=== PATIENT | male | born 1975 | race American Indian/Alaskan Native ===

== ENCOUNTER 2020-08-30 23:23 | Inpatient (IN) | payer OTHER ==
[2020-08-31 00:37] LABS: Mean Corpuscular HGB Conc 29 % (32-34); Platelet Count 285 K/mm3 (140-440); Red Blood Count 4.47 M/mm3 (3.65-5.03); Red Cell Distribution Width 19.5 % (13.2-15.2)
[2020-08-31 00:44] LABS: Bilirubin,Urine NEG (Negative); Blood,Urine NEG (Negative); Color,Urine Straw (Yellow); Protein,Urine <15 mg/dL mg/dL (Negative); Urobilinogen,Urine < 2.0 mg/dL (<2.0)
[2020-08-31 00:57] LABS: Alanine Aminotransferase 102 units/L (7-56); Albumin 3.7 g/dL (3.9-5); Blood Urea Nitrogen 12 mg/dL (9-20); Calcium 8.3 mg/dL (8.4-10.2); Hemolysis Index 7
[2020-08-31 00:59] LABS: Hematocrit 31.2 % (35.5-45.6); Hemoglobin 9.2 gm/dl (11.8-15.2); Mean Corpuscular Volume 70 fl (84-94)
[2020-08-31 01:00] LABS: BUN/Creatinine Ratio 17
--- NOTE | 2020-08-31 01:08 | Emergency Department Report ---
<PIA WOLFF III - Last Filed: 08/31/20 03:06> ED General Adult HPI - General Chief complaint: Abdominal Pain Stated complaint: ABD PAIN PUI?: No Time Seen by Provider: 08/31/20 00:08 - Related Data Allergies Allergy/AdvReac Type Severity Reaction Status Date / Time No Known Allergies Allergy Unverified 08/31/20 00:03 ED Course - Reevaluation(s) Reevaluation #1: I reviewed the findings and management of this patient in real-time and I have personally seen and examined this patient and participated in the decision making for this patient with the midlevel. Patient is a 45-year-old male [facility] emergency room with complaints of abdominal pain for 4 weeks and melena. Patient is also HIV positive and has been off his HIV medications. Patient also not taking his Bactrim. Patient had a guaiac positive Hemoccult done by the midlevel. Patient was found to have black stools. GI was consulted. Patient had a CT scan of the abdomen. Patient admitted to the hospitalist service. I examined the patient. Patient has generalized tenderness. Patient has normal S1-S2. Patient's lung sounds are clear to auscultation. I discussed all results with patient. I discussed plan of care with patient. Patient agrees with plan of care and admission. Patient to be admitted to the hospitalist service. 08/31/20 03:06 ED Medical Decision Making - Lab Data Result diagrams: 08/31/20 00:17 08/31/20 01:46 ED Disposition Clinical Impression: Melena, Noncompliance HIV (human immunodeficiency virus infection) Qualifiers: HIV symptom status: symptomatic Qualified Code(s): B20 - Human immunodeficiency virus [HIV] disease Anemia Qualifiers: Anemia type: unspecified type Qualified Code(s): D64.9 - Anemia, unspecified Pneumonia Qualifiers: Pneumonia type: due to unspecified organism Laterality: bilateral Lung location: unspecified part of lung Qualified Code(s): J18.9 - Pneumonia, unspecified organism GI bleed Qualifiers: GI bleed type/associated pathology: melena Qualified Code(s): K92.1 - Melena Disposition: DC-09 OP ADMIT IP TO THIS HOSP Is pt being admited?: Yes Does the pt Need Aspirin: No Condition: Critical <CHRISTOPH RIVAS - Last Filed: 08/31/20 03:27> ED General Adult HPI - General Source: patient, EMS Mode of arrival: Ambulatory Limitations: No Limitations - History of Present Illness Initial comments: Patient is a 45-year-old male presents emergency room complaints of generalized abdominal pain for a month. He states that he has also developed black stools over the last couple of weeks. He denies any fever, nausea, vomiting, diarrhea, hematochezia. He has a past medical history of AIDS and states that he has b een off his medication for 3 weeks. He is unsure of his HIV medication but states that he is also supposed to be on Bactrim and has not been on it for 3 weeks. He has an associated dry cough for 3 weeks. He states that he also has a pruritic rash all over his body. He denies any medication allergies. ED Review of Systems ROS: Stated complaint: ABD PAIN Other details as noted in HPI Comment: All other systems reviewed and negative ED Past Medical Hx - Past Medical History Previous Medical History?: No - Surgical History Past Surgical History?: No - Social History Smoking Status: Current Every Day Smoker Substance Use Type: None ED Physical Exam - General Limitations: No Limitations General appearance: alert, in no apparent distress - Head Head exam: Present: atraumatic, normocephalic - Eye Eye exam: Present: normal appearance - ENT ENT exam: Present: mucous membranes moist - Respiratory Respiratory exam: Present: normal lung sounds bilaterally. Absent: respiratory distress, wheezes, rales, rhonchi, stridor, chest wall tenderness, accessory muscle use, decreased breath sounds, prolonged expiratory - Cardiovascular Cardiovascular Exam: Present: regular rate, normal rhythm, normal heart sounds. Absent: systolic murmur, diastolic murmur, rubs, gallop - GI/Abdominal GI/Abdominal exam: Present: soft, normal bowel sounds. Absent: distended, tenderness, guarding, rebound, rigid - Rectal Rectal exam: Present: other (asset management analyst: jimi, plastics factory worker, melanotic stool, heme positive stool, no palpable or visualized external or internal hemorrhoids, normal rectal tone, no bright red blood per rectum) - Neurological Exam Neurological exam: Present: alert, oriented X3 - Psychiatric Psychiatric exam: Present: normal affect, normal mood - Skin Skin exam: Present: warm, dry, rash (hyperpigmentation and dry skin diffusely ) ED Course Vital Signs 08/30/20 08/31/20 08/31/20 23:51 02:06 02:16 Temperature 97.6 F Pulse Rate 92 H 89 Respiratory 18 11 L Rate Blood Pressure 139/86 133/90 O2 Sat by Pulse 98 93 96 Oximetry 08/31/20 08/31/20 08/31/20 02:30 02:46 03:00 Temperature Pulse Rate 106 H Respiratory 18 Rate Blood Pressure 160/103 160/103 O2 Sat by Pulse 92 96 95 Oximetry 08/31/20 03:09 Temperature Pulse Rate 86 Respiratory 17 Rate Blood Pressure O2 Sat by Pulse 97 Oximetry - Consultations Consultation #1: 08/31/20 01:52 Spoke with hospitalist nurse practitioner for Dr. Martínez, hospitalist regarding patient history, results, will accept and resume care of patient, will admit to hospitalist service 08/31/20 03:[address] Burdick , regarding pt history and results will consult on patient ED Medical Decision Making - Lab Data Result diagrams: 08/31/20 00:17 08/31/20 01:46 Lab Results 08/31/20 08/31/20 08/31/20 Range/Units 00:08 00:17 00:17 WBC 6.1 (4.5-11.0) K/mm3 RBC 4.47 (3.65-5.03) M/mm3 Hgb 9.2 L (11.8-15.2) gm/dl Hct 31.2 L (35.5-45.6) % MCV 70 L (84-94) fl MCH 21 L (28-32) pg MCHC 29 L (32-34) % RDW 19.5 H (13.2-15.2) % Plt Count 285 (140-440) K/mm3 Eos % (Auto) Buffing Wheel Inspector PT (12.2-14.9) Sec. INR (0.87-1.13) APTT (24.2-36.6) Sec. D-Dimer (0-234) ng/mlDDU Sodium 139 (137-145) mmol/L Potassium 3.5 L (3.6-5.0) mmol/L Chloride 104.0 (98-107) mmol/L Carbon Dioxide 25 (22-30) mmol/L Anion Gap 14 mmol/L BUN 12 (9-20) mg/dL Creatinine 0.7 L (0.8-1.3) mg/dL Estimated GFR > 60 ml/min BUN/Creatinine Ratio 17 % Glucose 88 (75-100) mg/dL Lactic Acid (0.7-2.0) mmol/L Calcium 8.3 L (8.4-10.2) mg/dL Total Bilirubin 0.20 (0.1-1.2) mg/dL AST 74 H (5-40) units/L ALT 102 H (7-56) units/L Alkaline Phosphatase 138 H (35-129) units/L Total Protein 7.2 (6.3-8.2) g/dL Albumin 3.7 L (3.9-5) g/dL Albumin/Globulin Ratio 1.1 % Lipase (13-60) units/L Urine Color Straw (Yellow) Urine Turbidity Clear (Clear) Urine pH 6.0 (5.0-7.0) Ur Specific [place] 1.008 (1.003-1.030) Urine Protein <15 mg/dl (Negative) mg/dL Urine Glucose (UA) Neg (Negative) mg/dL Urine Ketones Neg (Negative) mg/dL Urine Blood Neg (Negative) Urine Nitrite Neg (Negative) Ur Reducing Substances Not Reportable Urine Bilirubin Neg (Negative) Urine Ictotest Not Reportable Urine Urobilinogen < 2.0 (<2.0) mg/dL Ur Leukocyte Esterase Neg (Negative) Urine WBC (Auto) 1.0 (0.0-6.0) /HPF Urine RBC (Auto) 1.0 (0.0-6.0) /HPF U Epithel Cells (Auto) < 1.0 (0-13.0) /HPF 08/31/20 08/31/20 08/31/20 Range/Units 00:17 00:25 01:46 WBC (4.5-11.0) K/mm3 RBC (3.65-5.03) M/mm3 Hgb (11.8-15.2) gm/dl Hct (35.5-45.6) % MCV (84-94) fl MCH (28-32) pg MCHC (32-34) % RDW (13.2-15.2) % Plt Count (140-440) K/mm3 Eos % (Auto) PT 12.5 (12.2-14.9) Sec. INR 0.95 (0.87-1.13) APTT 31.2 (24.2-36.6) Sec. D-Dimer 219.47 (0-234) ng/mlDDU Sodium (137-145) mmol/L Potassium (3.6-5.0) mmol/L Chloride (98-107) mmol/L Carbon Dioxide (22-30) mmol/L Anion Gap mmol/L BUN (9-20) mg/dL Creatinine (0.8-1.3) mg/dL Estimated GFR ml/min BUN/Creatinine Ratio % Glucose (75-100) mg/dL Lactic Acid (0.7-2.0) mmol/L Calcium (8.4-10.2) mg/dL Total Bilirubin (0.1-1.2) mg/dL AST (5-40) units/L ALT (7-56) units/L Alkaline Phosphatase (35-129) units/L Total Protein (6.3-8.2) g/dL Albumin (3.9-5) g/dL Albumin/Globulin Ratio % Lipase 29 (13-60) units/L Urine Color (Yellow) Urine Turbidity (Clear) Urine pH (5.0-7.0) Ur Specific [place] (1.003-1.030) Urine Protein (Negative) mg/dL Urine Glucose (UA) (Negative) mg/dL Urine Ketones (Negative) mg/dL Urine Blood (Negative) Urine Nitrite (Negative) Ur Reducing Substances Urine Bilirubin (Negative) Urine Ictotest Urine Urobilinogen (<2.0) mg/dL Ur Leukocyte Esterase (Negative) Urine WBC (Auto) (0.0-6.0) /HPF Urine RBC (Auto) (0.0-6.0) /HPF U Epithel Cells (Auto) (0-13.0) /HPF 08/31/20 08/31/20 Range/Units 01:46 01:46 WBC (4.5-11.0) K/mm3 RBC (3.65-5.03) M/mm3 Hgb (11.8-15.2) gm/dl Hct (35.5-45.6) % MCV (84-94) fl MCH (28-32) pg MCHC (32-34) % RDW (13.2-15.2) % Plt Count (140-440) K/mm3 Eos % (Auto) PT (12.2-14.9) Sec. INR (0.87-1.13) APTT (24.2-36.6) Sec. D-Dimer (0-234) ng/mlDDU Sodium (137-145) mmol/L Potassium (3.6-5.0) mmol/L Chloride (98-107) mmol/L Carbon Dioxide (22-30) mmol/L Anion Gap mmol/L BUN (9-20) mg/dL Creatinine (0.8-1.3) mg/dL Estimated GFR ml/min BUN/Creatinine Ratio % Glucose 72 L (75-100) mg/dL Lactic Acid 1.20 (0.7-2.0) mmol/L Calcium (8.4-10.2) mg/dL Total Bilirubin (0.1-1.2) mg/dL AST (5-40) units/L ALT (7-56) units/L Alkaline Phosphatase (35-129) units/L Total Protein (6.3-8.2) g/dL Albumin (3.9-5) g/dL Albumin/Globulin Ratio % Lipase (13-60) units/L Urine Color (Yellow) Urine Turbidity (Clear) Urine pH (5.0-7.0) Ur Specific [place] (1.003-1.030) Urine Protein (Negative) mg/dL Urine Glucose (UA) (Negative) mg/dL Urine Ketones (Negative) mg/dL Urine Blood (Negative) Urine Nitrite (Negative) Ur Reducing Substances Urine Bilirubin (Negative) Urine Ictotest Urine Urobilinogen (<2.0) mg/dL Ur Leukocyte Esterase (Negative) Urine WBC (Auto) (0.0-6.0) /HPF Urine RBC (Auto) (0.0-6.0) /HPF U Epithel Cells (Auto) (0-13.0) /HPF - Radiology Data Radiology results: report reviewed Ordering Physician: DAVID CRESPO Date of Service: 08/31/20 Procedure(s): XR chest routine 2V Accession Number(s): [id number] cc: DAVID CRESPO Fluoro Time In Minutes: CHEST 2 VIEWS INDICATION / CLINICAL INFORMATION: cough x 3 weeks. COMPARISON: None available. FINDINGS: SUPPORT DEVICES: None. HEART / MEDIASTINUM: No significant abnormality. LUNGS / PLEURA: There are patchy airspace opacities in the lung bases which could represent atelectasis or pneumonia. No pneumothorax. ADDITIONAL FINDINGS: No significant additional findings. IMPRESSION: 1. There are patchy airspace opacities in both lung bases which could represent atelectasis or pneumonia. Signer Name: Pito Suárez MD Signed: 08/31/2020 1:08 AM Workstation Name: [id number] Transcribed By: SS Dictated By: Pito Suárez MD Electronically Authenticated By: Pito Suáerz MD Signed Date/Time: 08/31/20107 DD/ 6 TD/TT: Ordering Physician: DAVID CRESPO Date of Service: 08/31/20 Procedure(s): CT abdomen pelvis w con Accession Number(s): [id number] cc: DAVID CRESPO CT ABDOMEN AND PELVIS WITH CONTRAST INDICATION / CLINICAL INFORMATION: abd pain, grossly melanotic stool. TECHNIQUE: Axial CT images were obtained through the abdomen and pelvis after 100 cc of Omnipaque [address] scans at this location are performed using CT dose reduction for ALARA by means of automated exposure control. COMPARISON: None available. FINDINGS: LOWER CHEST: There is moderate hiatal hernia LIVER: No significant abnormality. GALLBLADDER: No significant abnormality. BILE DUCTS: No significant abnormality. PANCREAS: No significant abnormality. SPLEEN: 8 mm hypodensity likely represents a small cyst or hemangioma. ADRENALS: No significant abnormality. RIGHT KIDNEY / URETER: No significant abnormality. LEFT KIDNEY / URETER: No significant abnormality. STOMACH / SMALL BOWEL: Contrast media is noted in small bowel. There is a small hiatal hernia. COLON: There is contrast media in the colon presumably from recent imaging performed elsewhere. APPENDIX: No significant abnormality. PERITONEUM: No free fluid. No free air. No fluid collection. LYMPH NODES: No significant adenopathy. AORTA / ARTERIES: No significant abnormality. IVC / VEINS: No significant abnormality. URINARY BLADDER: No significant abnormality. REPRODUCTIVE ORGANS: No significant abnormality. ADDITIONAL FINDINGS: None. SKELETAL SYSTEM: There is advanced degenerative change at L4-5. IMPRESSION: 1. There is no obstruction, inflammation, or free air. There are no abnormal fluid collections. Signer Name: Pito Suárez MD Signed: 08/31/2020 2:05 AM Workstation Name: [id number] Transcribed By: SS Dictated By: Pito Suárez MD Electronically Authenticated By: Pito Suárez MD Signed Date/Time: 08/31/20204 DD/ 9 TD/TT: - Medical Decision Making Patient is a 45-year-old male presents emergency room complaints of generalized abdominal pain for a month. He states that he has also developed black stools o carmina the last couple of weeks. He denies any fever, nausea, vomiting, diarrhea, hematochezia. He has a past medical history of AIDS and states that he has been off his medication for 3 weeks. He is unsure of his HIV medication but states that he is also supposed to be on Bactrim and has not been on it for 3 weeks. He has an associated dry cough for 3 weeks. He states that he also has a pruritic rash all over his body. He denies any medication allergies. Vitals are stable. No abdominal tenderness on exam, no guarding, no rebound, no rigidity, normal bowel sounds, no peritoneal signs, asset management analyst Jimi, plastics factory worker grossly melanotic stool. Labs with mild anemia with H&H at 9.2/31.2, mild el evation in LFTs. Chest x-ray: 1. There are patchy airspace opacities in both lung bases which could represent atelectasis or pneumonia. Patient placed on COVID-19 precautions, Covid order set ordered, patient given ceftriaxone and Bactrim, infectious disease consult placed. CT abdomen pelvis with IV contrast: 1. There is no obstruction, inflammation, or free air. There are no abnormal fluid collections. Spoke with hospitalist nurse practitioner for Dr. Martínez, hospitalist regarding patient history, results, will accept and resume care of patient, will admit to hospitalist service. spoke with Dr. Burdick, GI, regarding pt history and results will consult on patient. Patient admitted to hospitalist service. Discussed case with Dr. Wolff, ER attending who agrees with plan and evaluated patient at bedside. - Differential Diagnosis GI bleed, cancer, colitis, IBD, COVID-19, CAP, PJP pneumonia Critical care attestation.: If time is entered above; I have spent that time in minutes in the direct care of this critically ill patient, excluding procedure time. ED Disposition Is pt being admited?: Yes Does the pt Need Aspirin: No Time of Disposition: 02:49
--- NOTE | 2020-08-31 01:13 | XRay Report ---
CHEST 2 VIEWS INDICATION / CLINICAL INFORMATION: cough x 3 weeks. COMPARISON: None available. FINDINGS: SUPPORT DEVICES: None. HEART / MEDIASTINUM: No significant abnormality. LUNGS / PLEURA: There are patchy airspace opacities in the lung bases which could represent atelectas is or pneumonia. No pneumothorax. ADDITIONAL FINDINGS: No significant additional findings. IMPRESSION: 1. There are patchy airspace opacities in both lung bases which could represent atelectasis or pneumo saleem. Signer Name: Pito Suárez MD Signed: 08/31/2020 1:08 AM Workstation Name: [id number]
[2020-08-31 01:17] LABS: INR 0.95 (0.87-1.13)
[2020-08-31 01:18] LABS: Partial Thromboplastin Time 31.2 Sec. (24.2-36.6)
[2020-08-31] MEDS ORDERED: cefTRIAXone/NS 1 GM/50 ML 1 GM/50 ML BAG IV ONE (01:35)
[2020-08-31] MEDS ORDERED: SULFAMETHOXAZOLE/TRIMETHOPRIM 800/160MG DS TAB PO ONE (01:35)
[2020-08-31] MEDS ORDERED: HYDROCORTISONE 1% CREAM 28.4GM TP ONE (01:41)
[2020-08-31] MEDS ORDERED: hydrOXYzine HCL 25 MG TAB PO ONE (01:41)
--- NOTE | 2020-08-31 02:07 | History and Physical Report ---
History of Present Illness Date of examination: 08/31/20 Date of admission: 08/31/20 Chief complaint: Abdominal pain pneumonia History of present illness: Patient is a 45-year-old male presents emergency room complaints of generalized abdominal pain for a month. He states that he has also developed black stools over the last couple of weeks. He denies any fever, nausea, vomiting, diarrhea, hematochezia. He has a past medical history of AIDS and states that he has been off his medication for 3 weeks. He is unsure of his HIV medication but states that he is also supposed to be on Bactrim and has not been on it for 3 weeks. He has an associated dry cough for 3 weeks. He states that he also has a pruritic rash all over his body. He denies any medication allergies. Ed work up WBC 6.1, hemoglobin 9.2, PLT 285, potassium 3.5, sodium 139, Cr 0.7, serum glucose 72 AST 74, AST 102, Calcium 8.3 CT of the abdomen and pelvics with contrast showed no obstruction inflammation is of free air Checks x-ray shows patchy airspace opacity in both lungs which could represent atelectasis or pneumonia Patient seen at bedside in ED. Patient alert and oriented times 3. patient reports abdominal -pain level 7/10 Past History Past Medical History: HIV/AIDS Past Surgical History: No surgical history Social history: smoking, full code Family history: no significant family history Medications and Allergies Allergies Allergy/AdvReac Type Severity Reaction Status Date / Time No Known Allergies Allergy Unverified 08/31/20 00:03 Review of Systems Ears, nose, mouth and throat: no epistaxis, no bleeding gums Cardiovascular: no phlebitis Respiratory: no congestion Gastrointestinal: abdominal pain, melena Genitourinary Male: no incontinence Rectal: no itching Musculoskeletal: no neck stiffness Integumentary: rash, dryness, other (bilateral leg dryness with wound scar) Neurological: no head injury Psychiatric: no disorientation, no hallucinations Hematologic/Lymphatic: no easy bruising, no easy bleeding Allergic/Immunologic: no urticaria Exam - Constitutional Vitals: Temp Pulse Resp BP Pulse Ox 97.6 F 92 H 18 139/86 98 08/30/20 23:51 08/30/20 23:51 08/30/20 23:51 08/30/20 23:51 08/30/20 23:51 General appearance: Present: mild distress, well-nourished - EENT Eyes: Present: PERRL ENT: hearing intact, clear oral mucosa - Neck Neck: Present: supple, normal ROM - Respiratory Respiratory effort: normal Respiratory: bilateral: CTA - Cardiovascular Heart rate: 92 Heart Sounds: Present: S1 & S2. Absent: rub, click - Extremities Extremities: pulses symmetrical, No edema Extremity abnormal: ulceration (healed ulcers), deformity Peripheral Pulses: within normal limits - Abdominal General gastrointestinal: Present: soft, tender, non-distended, normal bowel sounds Male genitourinary: Present: normal - Integumentary Integumentary: Present: clear, warm, dry - Musculoskeletal Musculoskeletal: gait normal, strength equal bilaterally - Psychiatric Psychiatric: appropriate mood/affect, intact judgment & insight, cooperative - Neurologic Neurologic: CNII-XII intact, moves all extremities - Allied Health Allied health notes reviewed: nursing Results - Labs CBC & Chem 7: 08/31/20 00:17 08/31/20 01:46 Labs: Abnormal lab results 08/31/20 08/31/20 Range/Units 00:17 00:17 Hgb 9.2 L (11.8-15.2) gm/dl Hct 31.2 L (35.5-45.6) % MCV 70 L (84-94) fl MCH 21 L (28-32) pg MCHC 29 L (32-34) % RDW 19.5 H (13.2-15.2) % Potassium 3.5 L (3.6-5.0) mmol/L Creatinine 0.7 L (0.8-1.3) mg/dL Calcium 8.3 L (8.4-10.2) mg/dL AST 74 H (5-40) units/L ALT 102 H (7-56) units/L Alkaline Phosphatase 138 H (35-129) units/L Albumin 3.7 L (3.9-5) g/dL Assessment and Plan - Patient Problems (1) Pneumonia Current Visit: Yes Status: Acute Qualifiers: Pneumonia type: due to unspecified organism Laterality: bilateral Lung location: unspecified part of lung Qualified Code(s): J18.9 - Pneumonia, unspecified organism Plan to address problem: Antibiotic therapy Blood culture follow-up with results ID consult Checks x-ray shows patchy airspace opacity in both lungs which could represent atelectasis or pneumonia (2) Anemia Current Visit: Yes Status: Acute Qualifiers: Anemia type: unspecified type Qualified Code(s): D64.9 - Anemia, unspecified Plan to address problem: likely 2/2 to GI bleed Monitor H/h MVI and iron supplement CT of the abdomen and pelvics with contrast showed no obstruction inflammation is of free air (3) HIV (human immunodeficiency virus infection) Current Visit: Yes Status: Acute Qualifiers: HIV symptom status: symptomatic Qualified Code(s): B20 - Human immun odeficiency virus [HIV] disease Plan to address problem: Patient not presently on any medication Patient advised to be compliant with treatments will resume antiviral (4) Melena Current Visit: Yes Status: Acute Plan to address problem: Patient reports bloody dark stool Dark bloody stool noted on rectal occult stool evaluation in ED Consult honing machine try out setter Monitor H&H. We will transfuse Packed red blood cells if needed Continue multivitamin and iron supplements (5) Noncompliance Current Visit: Yes Status: Acute Plan to address problem: Discussed treatment plan compliance Complication of not following treatment regimen explained to patient including and dying. (6) DVT prophylaxis Current Visit: Yes Status: Acute Plan to address problem: SCD
--- NOTE | 2020-08-31 02:09 | Cat Scan Report ---
CT ABDOMEN AND PELVIS WITH CONTRAST INDICATION / CLINICAL INFORMATION: abd pain, grossly melanotic stool. TECHNIQUE: Axial CT images were obtained through the abdomen and pelvis after 100 cc of Omnipaque [address] scans at this location are performed using CT dose reduction for ALARA by means of automated exposure control. COMPARISON: None available. FINDINGS: LOWER CHEST: There is moderate hiatal hernia LIVER: No significant abnormality. GALLBLADDER: No significant abnormality. BILE DUCTS: No significant abnormality. PANCREAS: No significant abnormality. SPLEEN: 8 mm hypodensity likely represents a small cyst or hemangioma. ADRENALS: No significant abnormality. RIGHT KIDNEY / URETER: No significant abnormality. LEFT KIDNEY / URETER: No significant abnormality. STOMACH / SMALL BOWEL: Contrast media is noted in small bowel. There is a small hiatal hernia. COLON: There is contrast media in the colon presumably from recent imaging performed elsewhere. APPENDIX: No significant abnormality. PERITONEUM: No free fluid. No free air. No fluid collection. LYMPH NODES: No significant adenopathy. AORTA / ARTERIES: No significant abnormality. IVC / VEINS: No significant abnormality. URINARY BLADDER: No significant abnormality. REPRODUCTIVE ORGANS: No significant abnormality. ADDITIONAL FINDINGS: None. SKELETAL SYSTEM: There is advanced degenerative change at L4-5. IMPRESSION: 1. There is no obstruction, inflammation, or free air. There are no abnormal fluid collections. Signer Name: Pito Suárez MD Signed: 08/31/2020 2:05 AM Workstation Name: [id number]
[2020-08-31] MEDS ORDERED: ONDANSETRON 4 MG/2 ML INJ IV PRN (02:28)
[2020-08-31] MEDS ORDERED: MAGNESIUM HYDROXIDE (MOM) ORAL LIQD UDC PO PRN (02:28)
[2020-08-31] MEDS ORDERED: SENNOSIDES 8.6 MG TAB PO PRN (02:28)
[2020-08-31] MEDS ORDERED: METOCLOPRAMIDE 10 MG/2 ML INJ IV PRN (02:28)
[2020-08-31] MEDS ORDERED: ALUM-MAG HYDROXIDE-SIMETHICONE 200-200-20MG/5ML ORAL LIQD 30 ML PO PRN (02:28)
[2020-08-31] MEDS ORDERED: ACETAMINOPHEN 325 MG TAB PO PRN (02:28)
[2020-08-31] MEDS ORDERED: SODIUM CHLORIDE 0.9% 1000 ML 1,000 ML IV SCH (02:30)
[2020-08-31] MEDS ORDERED: cefTRIAXone/NS 1 GM/50 ML 1 GM/50 ML BAG IV SCH ×2 (03:00→10:00)
[2020-08-31] MEDS ORDERED: AZITHROMYCIN/NS 500 MG/250 ML 500 MG/250 ML BAG IV SCH (03:00)
[2020-08-31] MEDS: MULTIVITAMINS ,THERAPEUTIC TAB PO ONE ×2 (03:33→03:39)
[2020-08-31] MEDS: FERROUS SULFATE 325 MG TAB PO ONE ×2 (03:33→03:39)
[2020-08-31] MEDS: FAMOTIDINE 20 MG/2 ML INJ IV ONE ×2 (03:33→03:39)
[2020-08-31 03:51] LABS: Total Cells Counted 100
[2020-08-31 03:52] LABS: Anisocytosis 1+
[2020-08-31 03:53] LABS: Hypochromasia 1+; Platelet Estimate Consistent w Auto; Target Cells 1+
[2020-08-31] MEDS ORDERED: diphenhydrAMINE 50 MG/ML VIAL IV ONE (04:53)
[2020-08-31] MEDS: SODIUM CHLORIDE 0.9% 1000 ML 1,000 ML IV SCH ×2 (05:05→21:51)
[2020-08-31] MEDS ORDERED: oxyCODONE /ACETAMINOPHEN 5-325MG TAB PO ONE (05:15)
[2020-08-31 05:43] LABS: C-Reactive Protein 2.1 mg/dL (0.00-1.30)
--- NOTE | 2020-08-31 08:55 | Event Note ---
Date: 08/31/20 Patient seen and examined resting comfortably although complains of severe abdominal pain worse with food. Still with dark stools per patient and nurse. And also itching. Discontinued antibiotics at this point due to the allergic reaction and no clear evidence of infection. We will continue to monitor continue Bactrim in its place considering history of HIV. ID has been consulted we will also continue to work-up possible GI bleed. Anticipate endoscopy in a.m. CT abdomen and pelvis reviewed lipase is normal.
[2020-08-31] MEDS ORDERED: diphenhydrAMINE 50 MG CAP PO PRN (09:27)
[2020-08-31] MEDS ORDERED: MORPHINE 2 MG/1 ML INJ IV PRN (09:59)
[2020-08-31] MEDS ORDERED: SULFAMETHOXAZOLE/TRIMETHOPRIM 800/160MG DS TAB PO SCH (10:00)
[2020-08-31] MEDS ORDERED: PANTOPRAZOLE 40 MG INJ IV SCH (10:00)
--- NOTE | 2020-08-31 10:12 | Gastroenterology Consultation ---
History of Present Illness - Reason for Consult Consult date: 08/31/20 abdominal pain, melena Requesting physician: TJ PRABHAKAR - History of Present Illness The patient is a 45 yo aam with h/o HIV, non-compliant with anti-viral meds for ~3 weeks, who presents with fatigue/weakness, generalized abd pain. pt found to have anemia (hgb 9) on admission, and reports dark/black appearing stools for a couple weeks (unable to pinpoint clear timing of onset). he has abd pain, mostly in mid/upper abdomen, constant but worse with po intake. no n/v, hematochezia or hematemesis. c/o sob as well. reports ibuprofen use daily for a few weeks. progressive weight loss over past couple months, unable to quantify amount. Past History Past Medical History: HIV/AIDS Past Surgical History: No surgical history Social history: smoking, full code Family history: no significant family history Medications and Allergies Allergies Allergy/AdvReac Type Severity Reaction Status Date / Time Penicillins Allergy Itching Verified 08/31/20 07:29 Active Meds: Active Medications Acetaminophen (Acetaminophen 325 Mg Tab) 650 mg PO Q4H PRN PRN Reason: Pain MILD(1-3)/Fever >100.5/CRAIG Al Hydrox/Mg Hydrox/Simethicone (Alum-Mag Hydroxide-Simethicone [id number]/5ml Oral Liqd 30 Ml) 30 ml PO Q4H PRN PRN Reason: Indigestion Diphenhydramine HCl (Diphenhydramine 50 Mg Cap) 50 mg PO Q6H PRN PRN Reason: Itching Last Admin: 08/31/20 10:04 Dose: 50 mg Documented by: Sodium Chloride (Nacl 0.9% 1000 Ml) 1,000 mls @ 75 mls/hr IV DIRECT LUIS Last Admin: 08/31/20 05:05 Dose: 75 mls/hr Documented by: Magnesium Hydroxide (Magnesium Hydroxide (Mom) Oral Liqd Udc) 30 ml PO Q4H PRN PRN Reason: Constipation Metoclopramide HCl (Metoclopramide 10 Mg/2 Ml Inj) 10 mg IV Q6H PRN PRN Reason: Nausea And Vomiting Last Admin: 08/31/20 09:57 Dose: 10 mg Documented by: Morphine Sulfate (Morphine 2 Mg/1 Ml Inj) 2 mg IV Q4H PRN PRN Reason: Pain, Moderate (4-6) Ondansetron HCl (Ondansetron 4 Mg/2 Ml Inj) 4 mg IV Q8H PRN PRN Reason: Nausea And Vomiting Pantoprazole Sodium (Pantoprazole 40 Mg Inj) 40 mg IV QDAY [facility] Senna (Sennosides 8.6 Mg Tab) 8.6 mg PO Q12HR PRN PRN Reason: Constipation Sodium Chloride (Sodium Chloride 0.9% 10 Ml Flush Syringe) 10 ml IV BID [facility] Last Admin: 08/31/20 09:58 Dose: 10 ml Documented by: Sodium Chloride (Sodium Chloride 0.9% 10 Ml Flush Syringe) 10 ml IV PRN PRN PRN Reason: LINE FLUSH Trimethoprim/Sulfamethoxazole (Sulfamethoxazole/Trimethoprim 800/160mg Ds Tab) 1 each PO Q12HR [facility]; Protocol Last Admin: 08/31/20 09:57 Dose: 1 each Documented by: Reviewed/updated patient's home and current medications. Review of Systems - Review of Systems All systems: negative (per HPI, itching, rash) Exam - Constitutional Vital Signs: Temp Pulse Resp BP Pulse Ox 97.6 F 86 17 147/80 97 08/30/20 23:51 08/31/20 03:09 08/31/20 06:11 08/31/20 03:19 08/31/20 06:11 General appearance: no acute distress, disheveled - EENT Eyes: PERRL, EOM intact - Respiratory Respiratory effort: normal Respiratory: bilateral: CTA - Cardiovascular Rhythm: regular Heart Sounds: Present: S1 & S2 - Gastrointestinal General gastrointestinal: Present: soft, tender (epigastric abdomen), non- distended, normal bowel sounds - Neurologic Neurological: alert and oriented x3 - Psychiatric Psychiatric: appropriate mood/affect - Labs CBC & Chem 7: 08/31/20 00:17 08/31/20 01:46 Lab Results: Laboratory Results - last 24 hr 08/31/20 08/31/20 08/31/20 00:08 00:17 00:17 WBC 6.1 RBC 4.47 Hgb 9.2 L Hct 31.2 L MCV 70 L MCH 21 L MCHC 29 L RDW 19.5 H Plt Count 285 Eos % (Auto) [employer] Add Manual Diff Complete Total Counted 100 Seg Neuts % (Manual) 51.0 Lymphocytes % (Manual) 22.0 Monocytes % (Manual) 7.0 Eosinophils % (Manual) 20.0 H Nucleated RBC % Not Reportable Seg Neutrophils # Man 3.1 Band Neutrophils # 0.0 Lymphocytes # (Manual) 1.3 Abs React Lymphs (Man) 0.0 Monocytes # (Manual) 0.4 Eosinophils # (Manual) 1.2 H Basophils # (Manual) 0.0 Metamyelocytes # 0.0 Myelocytes # 0.0 Promyelocytes # 0.0 Blast Cells # 0.0 WBC Morphology Not Reportable Hypersegmented Neuts Not Reportable Hyposegmented Neuts Not Reportable Hypogranular Neuts Not Reportable Smudge Cells Not Reportable Toxic Granulation Not Reportable Toxic Vacuolation Not Reportable Dohle Bodies Not Reportable Pelger-Huet Anomaly Not Reportable Burt Rods Not Reportable Platelet Estimate Consistent w auto Clumped Platelets Not Reportable Plt Clumps, EDTA Not Reportable Large Platelets Not Reportable Giant Platelets Not Reportable Platelet Satelliting Not Reportable Plt Morphology Comment Not Reportable RBC Morphology Not Reportable Dimorphic RBCs Not Reportable Polychromasia Not Reportable Hypochromasia 1+ Poikilocytosis Not Reportable Anisocytosis 1+ Microcytosis 1+ Macrocytosis Not Reportable Spherocytes Not Reportable Pappenheimer Bodies Not Reportable Sickle Cells Not Reportable Target Cells 1+ Tear Drop Cells Not Reportable Ovalocytes Not Reportable Helmet Cells Not Reportable Jacobs-White Stone Bodies Not Reportable [place] Rings Not Reportable Reina Cells Not Reportable Bite Cells Not Reportable Crenated Cell Not Reportable Elliptocytes Not Reportable Acanthocytes (Spur) Not Reportable Rouleaux Not Reportable Hemoglobin C Crystals Not Reportable Schistocytes Not Reportable Malaria parasites Not Reportable David Bodies Not Reportable Hem Pathologist Commnt No PT INR APTT D-Dimer Sodium 139 Potassium 3.5 L Chloride 104.0 Carbon Dioxide 25 Anion Gap 14 BUN 12 Creatinine 0.7 L Estimated GFR > 60 BUN/Creatinine Ratio 17 Glucose 88 Lactic Acid Calcium 8.3 L Ferritin Total Bilirubin 0.20 AST 74 H ALT 102 H Alkaline Phosphatase 138 H Lactate Dehydrogenase C-Reactive Protein Total Protein 7.2 Albumin 3.7 L Albumin/Globulin Ratio 1.1 Lipase Urine Color Straw Urine Turbidity Clear Urine pH 6.0 Ur Specific [place] 1.008 Urine Protein <15 mg/dl Urine Glucose (UA) Neg Urine Ketones Neg Urine Blood Neg Urine Nitrite Neg Ur Reducing Substances Not Reportable Urine Bilirubin Neg Urine Ictotest Not Reportable Urine Urobilinogen < 2.0 Ur Leukocyte Esterase Neg Urine WBC (Auto) 1.0 Urine RBC (Auto) 1.0 U Epithel Cells (Auto) < 1.0 08/31/20 08/31/20 08/31/20 00:17 00:25 01:46 WBC RBC Hgb Hct MCV MCH MCHC RDW Plt Count Eos % (Auto) Add Manual Diff Total Counted Seg Neuts % (Manual) Lymphocytes % (Manual) Monocytes % (Manual) Eosinophils % (Manual) Nucleated RBC % Seg Neutrophils # Man Band Neutrophils # Lymphocytes # (Manual) Abs React Lymphs (Man) Monocytes # (Manual) Eosinophils # (Manual) Basophils # (Manual) Metamyelocytes # Myelocytes # Promyelocytes # Blast Cells # WBC Morphology Hypersegmented Neuts Hyposegmented Neuts Hypogranular Neuts Smudge Cells Toxic Granulation Toxic Vacuolation Dohle Bodies Pelger-Huet Anomaly Burt Rods Platelet Estimate Clumped Platelets Plt Clumps, EDTA Large Platelets Giant Platelets Platelet Satelliting Plt Morphology Comment RBC Morphology Dimorphic RBCs Polychromasia Hypochromasia Poikilocytosis Anisocytosis Microcytosis Macrocytosis Spherocytes Pappenheimer Bodies Sickle Cells Target Cells Tear Drop Cells Ovalocytes Helmet Cells Jacobs-White Stone Bodies [place] Rings Reina Cells Bite Cells Crenated Cell Elliptocytes Acanthocytes (Spur) Rouleaux Hemoglobin C Crystals Schistocytes Malaria parasites David Bodies Hem Pathologist Commnt PT 12.5 INR 0.95 APTT 31.2 D-Dimer 219.47 Sodium Potassium Chloride Carbon Dioxide Anion Gap BUN Creatinine Estimated GFR BUN/Creatinine Ratio Glucose Lactic Acid Calcium Ferritin Total Bilirubin AST ALT Alkaline Phosphatase Lactate Dehydrogenase C-Reactive Protein Total Protein Albumin Albumin/Globulin Ratio Lipase 29 Urine Color Urine Turbidity Urine pH Ur Specific [place] Urine Protein Urine Glucose (UA) Urine Ketones Urine Blood Urine Nitrite Ur Reducing Substances Urine Bilirubin Urine Ictotest Urine Urobilinogen Ur Leukocyte Esterase Urine WBC (Auto) Urine RBC (Auto) U Epithel Cells (Auto) 08/31/20 08/31/20 08/31/20 01:46 01:46 01:46 WBC RBC Hgb Hct MCV MCH MCHC RDW Plt Count Eos % (Auto) Add Manual Diff Total Counted Seg Neuts % (Manual) Lymphocytes % (Manual) Monocytes % (Manual) Eosinophils % (Manual) Nucleated RBC % Seg Neutrophils # Man Band Neutrophils # Lymphocytes # (Manual) Abs React Lymphs (Man) Monocytes # (Manual) Eosinophils # (Manual) Basophils # (Manual) Metamyelocytes # Myelocytes # Promyelocytes # Blast Cells # WBC Morphology Hypersegmented Neuts Hyposegmented Neuts Hypogranular Neuts Smudge Cells Toxic Granulation Toxic Vacuolation Dohle Bodies Pelger-Huet Anomaly Burt Rods Platelet Estimate Clumped Platelets Plt Clumps, EDTA Large Platelets Giant Platelets Platelet Satelliting Plt Morphology Comment RBC Morphology Dimorphic RBCs Polychromasia Hypochromasia Poikilocytosis Anisocytosis Microcytosis Macrocytosis Spherocytes Pappenheimer Bodies Sickle Cells Target Cells Tear Drop Cells Ovalocytes Helmet Cells Jacobs-White Stone Bodies [place] Rings [place] Cells Bite Cells Crenated Cell Elliptocytes Acanthocytes (Spur) Rouleaux Hemoglobin C Crystals Schistocytes Malaria parasites David Bodies Hem Pathologist Commnt PT INR APTT D-Dimer Sodium Potassium Chloride Carbon Dioxide Anion Gap BUN Creatinine Estimated GFR BUN/Creatinine Ratio Glucose 72 L Lactic Acid 1.20 Calcium Ferritin 19.8 L Total Bilirubin AST ALT Alkaline Phosphatase Lactate Dehydrogenase 422 H C-Reactive Protein 2.10 H Total Protein Albumin Albumin/Globulin Ratio Lipase Urine Color Urine Turbidity Urine pH Ur Specific [place] Urine Protein Urine Glucose (UA) Urine Ketones Urine Blood Urine Nitrite Ur Reducing Substances Urine Bilirubin Urine Ictotest Urine Urobilinogen Ur Leukocyte Esterase Urine WBC (Auto) Urine RBC (Auto) U Epithel Cells (Auto) - Imaging CT Scan: report reviewed Assessment and Plan 1. Abdominal pain 2. Melena/anemia 3. abnormal liver enzymes 4. HIV -non-compliant with meds -HD/vitals stable. BUN normal, but given reported dark stools, nsaid use, and location of pain, will plan EGD tomorrow to evaluate for PUD, neoplasm, or other upper gi path. ct scan without acute findings. lipase normal. check viral hep serologies as well as part of work up for abnormal liver enzymes -okay for clears today from gi stand point. NPO at midnight.
[2020-08-31] MEDS: PANTOPRAZOLE 40 MG INJ IV SCH ×2 (11:46→21:52)
[2020-08-31 14:17] LABS: Hematocrit 33.1 % (35.5-45.6); Hemoglobin 9.7 gm/dl (11.8-15.2)
--- NOTE | 2020-08-31 17:38 | Consultation ---
History of Present Illness - Reason for Consult Consult date: 08/31/20 - History of Present Illness 45-year-old man past medical history HIV/AIDS presented to hospital complaining of abdominal pain. He notes began approximately 1 month prior to admission, and has recently developed black stools past couple weeks. He otherwise denies any symptoms such as fevers, sweats, chills. He notes stopping his HIV medications 3 weeks prior. He is unsure of what medication he takes. He also notes being on Bactrim prophylaxis, and stopped the same time. He complains of dry cough for the past 3 weeks. He also notes getting tired very easily on exertion. Afebrile with a white count of 6.1. Covid negative. Normal procalcitonin. Normal renal function. Blood cultures no growth so far. Stool occult blood positive. Currently on Bactrim. Imaging personally reviewed: CT abdomen pelvis: No abdominal pathology. Chest x-ray: Patchy airspace opacities in both lungs representing atelectasis or pneumonia. Review of Systems: Bold if positive, otherwise negative General: fevers, chills, rigors HEENT: visual disturbance, diplopia, eye pain Respiratory: cough, sputum, hemoptysis, shortness of breath Cardiovascular: chest pain, syncope Gastrointestinal: nausea, vomiting, diarrhea, abdominal pain Genitourinary: dysuria, hematuria, flank pain Musculoskeletal: neck pain, back pain, joint pain, edema Neurologic: headaches, seizures Hematologic: easy bruising or bleeding Endocrine: night sweats, acute weight loss Skin: rash, jaundice, redness Psychiatric: suicidal, homicidal ideation Past History Past Medical History: HIV/AIDS Past Surgical History: No surgical history Social history: smoking, full code Family history: no significant family history Medications and Allergies Allergies Allergy/AdvReac Type Severity Reaction Status Date / Time Penicillins Allergy Itching Verified 08/31/20 07:29 Active Meds: Active Medications Acetaminophen (Acetaminophen 325 Mg Tab) 650 mg PO Q4H PRN PRN Reason: Pain MILD(1-3)/Fever >100.5/CRAIG Al Hydrox/Mg Hydrox/Simethicone (Alum-Mag Hydroxide-Simethicone [id number]/5ml Oral Liqd 30 Ml) 30 ml PO Q4H PRN PRN Reason: Indigestion Diphenhydramine HCl (Diphenhydramine 50 Mg Cap) 50 mg PO Q6H PRN PRN Reason: Itching Last Admin: 08/31/20 10:04 Dose: 50 mg Documented by: Sodium Chloride (Nacl 0.9% 1000 Ml) 1,000 mls @ 75 mls/hr IV DIRECT LUIS Last Admin: 08/31/20 05:05 Dose: 75 mls/hr Documented by: Magnesium Hydroxide (Magnesium Hydroxide (Mom) Oral Liqd Udc) 30 ml PO Q4H PRN PRN Reason: Constipation Metoclopramide HCl (Metoclopramide 10 Mg/2 Ml Inj) 10 mg IV Q6H PRN PRN Reason: Nausea And Vomiting Last Admin: 08/31/20 09:57 Dose: 10 mg Documented by: Morphine Sulfate (Morphine 2 Mg/1 Ml Inj) 2 mg IV Q4H PRN PRN Reason: Pain, Moderate (4-6) Ondansetron HCl (Ondansetron 4 Mg/2 Ml Inj) 4 mg IV Q8H PRN PRN Reason: Nausea And Vomiting Pantoprazole Sodium (Pantoprazole 40 Mg Inj) 40 mg IV BID [facility] Last Admin: 08/31/20 11:46 Dose: 40 mg Documented by: Senna (Sennosides 8.6 Mg Tab) 8.6 mg PO Q12HR PRN PRN Reason: Constipation Sodium Chloride (Sodium Chloride 0.9% 10 Ml Flush Syringe) 10 ml IV BID [facility] Last Admin: 08/31/20 09:58 Dose: 10 ml Documented by: Sodium Chloride (Sodium Chloride 0.9% 10 Ml Flush Syringe) 10 ml IV PRN PRN PRN Reason: LINE FLUSH Trimethoprim/Sulfamethoxazole (Sulfamethoxazole/Trimethoprim 800/160mg Ds Tab) 1 each PO Q12HR [facility]; Protocol Last Admin: 08/31/20 09:57 Dose: 1 each Documented by: Physical Examination - Physical Exam Narrative exam: Physical Exam: Constitutional: Alert, cooperative. No acute distress. Speaks very quickly. Head, Ears, Nose: Normocephalic, atraumatic. External ears, nose normal Eyes: Conjunctivae/corneas clear. No icterus. No ptosis. Neck: Supple, no meningeal signs Oral: dentition fair, no thrush Cardiovascular: S1, S2 normal. Respiratory: Good air entry, clear to auscultation bilaterally. Evident coughing fit while talking to him GI: Soft, non-tender; bowel sounds normal. No peritoneal signs. Musculoskeletal: No pedal edema, no cyanosis. Skin: No rash or abscess Hem/Lymphatic: No palpable cervical or supraclavicular nodes. No lymphangitis Psych: Mood ok. Affect normal Neurological: Awake, alert, oriented. No gross abnormality - Constitutional Vitals: Vital Signs Temp Pulse Resp BP Pulse Ox 97.6 F 86 17 147/80 97 08/30/20 23:51 08/31/20 03:09 08/31/20 06:11 08/31/20 03:19 08/31/20 06:11 Temperature -Last 24 Hours Temperature 97.6 F Results - Labs CBC & Chem 7: 08/31/20 13:45 08/31/20 01:46 Labs: Abnormal lab results 08/31/20 08/31/20 08/31/20 Range/Units 00:17 00:17 01:46 Hgb 9.2 L (11.8-15.2) gm/dl Hct 31.2 L (35.5-45.6) % MCV 70 L (84-94) fl MCH 21 L (28-32) pg MCHC 29 L (32-34) % RDW 19.5 H (13.2-15.2) % Eosinophils % (Manual) 20.0 H (0.0-4.3) % Eosinophils # (Manual) 1.2 H (0.0-0.4) K/mm3 Potassium 3.5 L (3.6-5.0) mmol/L Creatinine 0.7 L (0.8-1.3) mg/dL Glucose 72 L (75-100) mg/dL Calcium 8.3 L (8.4-10.2) mg/dL Ferritin (30.0-300.0) ng/mL AST 74 H (5-40) units/L ALT 102 H (7-56) units/L Alkaline Phosphatase 138 H (35-129) units/L Lactate Dehydrogenase 422 H (91-180) units/L C-Reactive Protein 2.10 H (0.00-1.30) mg/dL Albumin 3.7 L (3.9-5) g/dL 08/31/20 08/31/20 Range/Units 01:46 13:45 Hgb 9.7 L (11.8-15.2) gm/dl Hct 33.1 L (35.5-45.6) % MCV (84-94) fl MCH (28-32) pg MCHC (32-34) % RDW (13.2-15.2) % Eosinophils % (Manual) (0.0-4.3) % Eosinophils # (Manual) (0.0-0.4) K/mm3 Potassium (3.6-5.0) mmol/L Creatinine (0.8-1.3) mg/dL Glucose (75-100) mg/dL Calcium (8.4-10.2) mg/dL Ferritin 19.8 L (30.0-300.0) ng/mL AST (5-40) units/L ALT (7-56) units/L Alkaline Phosphatase (35-129) units/L Lactate Dehydrogenase (91-180) units/L C-Reactive Protein (0.00-1.30) mg/dL Albumin (3.9-5) g/dL Assessment and Plan Cultures: Blood culture 08/31/2020 no growth so far A/P: 45-year-old man past medical history HIV/AIDS presented with severe abdominal pain, dark stools. Also found of bilateral pneumonia and dry cough. #Bilateral pneumonia: Concern for PJP. With associated dry cough, normal procalcitonin. Covid negative. Denies any history of PJP. Also reports fatigue on exertion. Not presently hypoxic #HIV/AIDS: Reports stopping a few weeks ago, and has been on medication for approximately 5 months. Unclear baseline of viral load and CD4 count, however was reportedly on Bactrim prophylaxis. Unclear compliance though. Is normally a patient of IDP in [place] ([facility]). #Abdominal pain: Associated with positive fecal occult stool. Pending endoscopies with GI. Recs: -Ordered Fungitell -Ordered viral load, CD4 count. -Given is not presently hypoxic, no need for acute empiric high-dose Bactrim unless Fungitell returns positive -If he becomes hypoxic would consider pulmonary consult for bronchoscopy and pneumocystis DFA -Unclear what medications he is on for HIV. -Normal procalcitonin, as such would not start antibiotics. -Check Covid antibody, dry cough could be secondary to resolving Covid Thank you for the consult, we will continue to follow. Dr. [place] taking over tomorrow. Alyson Guevara MD [facility] O: [phone] F: [phone]
[2020-08-31] MEDS ORDERED: diphenhydrAMINE 25 MG CAP PO PRN (22:11)
[2020-09-01 08:04] LABS: Mean Corpuscular HGB Conc 29 % (32-34); Mean Corpuscular Volume 71 fl (84-94); Platelet Count 269 K/mm3 (140-440); Red Blood Count 4.68 M/mm3 (3.65-5.03); Red Cell Distribution Width 19.6 % (13.2-15.2)
[2020-09-01 08:15] LABS: Hemoglobin 9.7 gm/dl (11.8-15.2)
[2020-09-01 08:16] LABS: Hematocrit 33.1 % (35.5-45.6)
[2020-09-01 08:24] LABS: BUN/Creatinine Ratio 11; Blood Urea Nitrogen 11 mg/dL (9-20); Calcium 8.2 mg/dL (8.4-10.2); Hemolysis Index 0
[2020-09-01] MEDS ORDERED: SODIUM CHLORIDE 0.9% 1000 ML 1,000 ML IV SCH (08:30)
[2020-09-01 09:15] LABS: Total Cells Counted 100
[2020-09-01 09:16] LABS: Anisocytosis 1+; Hypochromasia 2+; Large Platelets Few; Platelet Estimate Consistent w Auto
[2020-09-01] MEDS ORDERED: LIDOCAINE (2%) 20 MG/1 ML VIAL 20 ML MDV INFILTRATI ONE (09:35)
[2020-09-01] MEDS ORDERED: propofoL 200 MG/20 ML VIAL IV ONE ×2 (09:36)
[2020-09-01] MEDS ORDERED: SULFAMETHOXAZOLE/TRIMETHOPRIM 800/160MG DS TAB PO SCH (10:00)
[2020-09-01] MEDS ORDERED: fentaNYL 100 MCG/2 ML INJ ONE (10:27)
[2020-09-01] MEDS: PANTOPRAZOLE 40 MG INJ IV SCH (10:31)
[2020-09-01] MEDS ORDERED: ALBUTEROL 8.5 GM MDI INHALATION IH ONE (10:56)
--- NOTE | 2020-09-01 11:11 | Operative Report ---
Operative Report Operative Report: Esophagogastroduodenoscopy Procedure Note Date of procedure: 09/01/2020 Endoscopist: Cole Burdick Pre-op diagnosis/indication: Abdominal pain, dark stools/melena Post-op diagnosis: Hiatal hernia MEDICATIONS: MAC COMPLICATIONS: No immediate complications ESTIMATED BLOOD LOSS: Minimal DESCRIPTION OF PROCEDURE: After consent was obtained, the patient was placed in the left lateral decubitis position. The olympus endoscope was inserted into the patient's mouth under direct vision and advanced to the 2nd portion of the duodenum without difficulty. The patient tolerated the procedure well. The views of the mucosa were good. The patient's vital signs were monitored continuously throughout the procedure. FINDINGS: There was a medium-large sized hiatal hernia, otherwise the esophagus appeared normal. The stomach appeared normal. The visualized portion of the duodenum appeared normal. IMPRESSION: 1. Hiatal hernia, otherwise unremarkable endoscopy RECOMMENDATIONS: -patient reports improvement in abdominal pain and requesting to eat. H/H stable without signs of bleeding since admission. okay to resume diet from gi stand point. will sign off, please call as needed or with questions.
[2020-09-01] MEDS: POTASSIUM CHLORIDE 10 MEQ 10 MEQ/100 ML BAG IV SCH ×2 (12:01→12:19)
--- NOTE | 2020-09-01 12:49 | Discharge Summary ---
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 He states that he has also developed black stools over the last couple of weeks. He denies any fever, nausea, vomiting, diarrhea, hematochezia. He has a past medical history of AIDS and states that he has been off his medication for 3 weeks. He is unsure of his HIV medication but states that he is also supposed to be on Bactrim and has not been on it for 3 weeks. He has an associated dry cough for 3 weeks. He states that he also has a pruritic rash all over his body. He denies any medication allergies. Ed work up WBC 6.1, hemoglobin 9.2, PLT 285, potassium 3.5, sodium 139, Cr 0.7, serum glucose 72 AST 74, AST 102, Calcium 8.3 CT of the abdomen and pelvics with contrast showed no obstruction inflammation is of free air Checks x-ray shows patchy airspace opacity in both lungs which could represent atelectasis or pneumonia Patient seen at bedside in ED. Patient alert and oriented times 3. patient reports abdominal -pain level 7/10 Patient was evaluated by GI underwent an endoscopy that showed hiatal hernia. Patient was also seen by infectious disease. elevated Liver enzymes-unknown cause Continue IV Hydration with normal saline 45-year-old man past medical history HIV/AIDS presented with severe abdominal pain, dark stools. Also found of bilateral pneumonia and dry cough. #Bilateral pneumonia: Concern for PJP. With associated dry cough, normal procalcitonin. Covid negative. Denies any history of PJP. Also reports fatigue on exertion. Not presently hypoxic #HIV/AIDS: Reports stopping a few weeks ago, and has been on medication for approximately 5 months. Unclear baseline of viral load and CD4 count, however was reportedly on Bactrim prophylaxis. Unclear compliance though. Is normally a patient of IDP in [place] ([facility]). #Abdominal pain: Associated with positive fecal occult stool. Pending endoscopies with GI. Recs: -Ordered Fungitell -Ordered viral load, CD4 count. -Given is not presently hypoxic, no need for acute empiric high-dose Bactrim unless Fungitell returns positive -If he becomes hypoxic would consider pulmonary consult for bronchoscopy and pneumocystis DFA -Unclear what medications he is on for HIV. -Normal procalcitonin, as such would not start antibiotics. -Check Covid antibody, dry cough could be secondary to resolving Covid Mild elevation in temperature but no leukocytosis and no repeat elevation. Patient was very aggressive and per nursing staff was using curse words and for waking him up through the night. He is clinically stable and will like to be discharged to follow-up with his doctors at [place]. Although he was very courteous with me. I have discussed his clinical status and the recommendation and the labs to be followed up with by his doctors as listed above by the ID recommendation. (1) Pneumonia Current Visit: Yes Status: Acute Qualifiers: Pneumonia type: due to unspecified organism Laterality: bilateral Lung location: unspecified part of lung Qualified Code(s): J18.9 - Pneumonia, unspecified organism Plan to address problem: Antibiotic therapy Blood culture follow-up with results ID consult Checks x-ray shows patchy airspace opacity in both lungs which could represent atelectasis or pneumonia (2) Anemia Current Visit: Yes Status: Acute Qualifiers: Anemia type: unspecified type Qualified Code(s): D64.9 - Anemia, unspe cified Plan to address problem: likely 2/2 to GI bleed Monitor H/h MVI and iron supplement CT of the abdomen and pelvics with contrast showed no obstruction inflammation is of free air (3) HIV (human immunodeficiency virus infection) Current Visit: Yes Status: Acute Qualifiers: HIV symptom status: symptomatic Qualified Code(s): B20 - Human immunodeficiency virus [HIV] disease Plan to address problem: Patient not presently on any medication Patient advised to be compliant with treatments will resume antiviral (4) Melena Current Visit: Yes Status: Acute Plan to address problem: Patient reports bloody dark stool Dark bloody stool noted on rectal occult stool evaluation in ED Consult radiation monitor Monitor H&H. We will transfuse Packed red blood cells if needed Continue multivitamin and iron supplements (5) Noncompliance Current Visit: Yes Status: Acute Plan to address problem: Discussed treatment plan compliance Complication of not following treatment regimen explained to patient including and dying. (6) hiatal hernia Disposition: DC-01 TO HOME OR SELFCARE Final Discharge Diagnosis (Prints w/discharge instructions): Pneumonia Time spent for discharge: 35 mins Core Measure Documentation - Palliative Care Palliative Care/ Comfort Measures: Not Applicable - Core Measures Any of the following diagnoses?: none Exam - Physical Exam Narrative exam: General appearance: Present: no distress well-nourished - EENT Eyes: Present: PERRL ENT: hearing intact, clear oral mucosa - Neck Neck: Present: supple, normal ROM - Respiratory Respiratory effort: normal Respiratory: bilateral: CTA - Cardiovascular Heart rate: 92 Heart Sounds: Present: S1 & S2. Absent: rub, click - Extremities Extremities: pulses symmetrical, No edema Extremity abnormal: ulceration (healed ulcers), deformity Peripheral Pulses: within normal limits - Abdominal General gastrointestinal: Present: soft, non tender, non-distended, normal bowel sounds Male genitourinary: Present: normal - Integumentary Integumentary: Present: clear, warm, dry - Musculoskeletal Musculoskeletal: gait normal, strength equal bilaterally - Psychiatric Psychiatric: appropriate mood/affect, intact judgment & insight, cooperative - Neurologic Neurologic: CNII-XII intact, moves all extremities - Allied Health Allied health notes reviewed: nursing - Constitutional Vitals: Temp Pulse Resp BP Pulse Ox 98.7 F 98 H 18 87/43 97 09/01/20 11:08 09/01/20 11:08 09/01/20 11:08 09/01/20 11:08 09/01/20 11:08 Plan Activity: advance as tolerated, fall precautions Diet: low fat Wound: per your surgeon's advice Special Instructions: record daily weights, record daily BP diary, record blood sugar diary Additional Instructions: must follow with your physician for your medications Follow up with: DIRK ORTA MD [Primary Care Provider] - 7 Days [facility] [Outside] - 7 Days
[2020-09-01] MEDS ORDERED: POTASSIUM CHLORIDE ER 20 MEQ TAB PO SCH (13:00)
--- NOTE | 2020-09-01 13:11 | Anesthesia Day of Surgery ---
Anesthesia Day of Surgery - Day of Surgery Patient Examined: Yes Patient H&P Reviewed: Yes Patient is NPO: Yes
--- NOTE | 2020-09-01 13:13 | Anesthesia Consultation ---
Anesthesia Consult and Med Hx Date of service: 09/01/20 - Airway Anesthetic Teeth Evaluation: Poor ROM Head & Neck: Adequate Mental/Hyoid Distance: Adequate Mallampati Class: Class III Intubation Access Assessment: Probably Good - Pre-Operative Health Status ASA Pre-Surgery Classification: ASA3 Proposed Anesthetic Plan: MAC - Pulmonary Hx Smoking: Yes Hx Asthma: No COPD: No Hx Pneumonia: No - Central Nervous System Hx Psychiatric Problems: No - Gastrointestinal Hx Gastroesophageal Reflux Disease: No - Endocrine Hx End Stage Renal Disease: No - Other Systems Hx Obesity: No
--- NOTE | 2020-09-01 13:13 | Post Anesthesia Evaluation ---
- Post Anesthesia Evaluation Patient Participated: Yes Airway Patent: Yes Stable Respiratory Function: Yes Nausea/Vomiting: No Temp > 96.8F: Yes Pain Manageable: Yes Adequeate Hydration: Yes Anesthesia Complications: No Block Receding Appropriately: Not Applicable Patient on Ventilator: No
[2020-09-01 14:18] VITALS: BP 116/60
--- NOTE | 2020-09-01 14:24 | Progress Note ---
Assessment and Plan Cultures: Blood culture 08/31/2020 no growth so far SARS-CoV-2 PCR negative MRSA pcr positive A/P: 45-year-old man past medical history HIV/AIDS presented with severe abdominal pain, dark stools. Also found of bilateral pneumonia and dry cough. #Bilateral pneumonia: Concern for PJP. With associated dry cough, normal procalcitonin. Covid negative. MRSA posotive Denies any history of PJP. Also reports fatigue on exertion. Not presently hypoxic #HIV/AIDS: Reports stopping a few weeks ago, and has been on medication for approximately 5 months. Unclear baseline of viral load and CD4 count, however was reportedly on Bactrim prophylaxis. Unclear compliance though. Is normally a patient of IDP in [place] ([facility] [place] [facility]). #Abdominal pain: Associated with positive fecal occult stool. Status post EGD, shows hiatal hernia. Recs: -Ordered Fungitell pending -Ordered viral load, CD4 count pending -Unclear what medications he is on for HIV. -Check Covid antibody, dry cough could be secondary to resolving Covid There was a medium-large sized hiatal hernia, otherwise the esophagus appeared normal. The stomach appeared normal. The visualized portion of the duodenum appeared normal. Rosie Montana MD [facility] ([facility]) Office [phone] Objective - Constitutional Vitals: Vital Signs Temp Pulse Resp BP Pulse Ox 98.7 F 85 20 116/60 96 09/01/20 12:01 09/01/20 12:01 09/01/20 12:01 09/01/20 12:01 09/01/20 12:01 Temperature -Last 24 Hours Temperature 98.7 F Temperature 98.7 F Temperature 98.9 F Temperature 98.9 F Temperature 100.3 F Temperature 102.5 F Temperature 100.2 F - Labs CBC & Chem 7: 09/01/20 07:20 09/01/20 07:20 Labs: Abnormal lab results 09/01/20 09/01/20 Range/Units 07:20 07:20 Hgb 9.7 L (11.8-15.2) gm/dl Hct 33.1 L (35.5-45.6) % MCV 71 L (84-94) fl MCH 21 L (28-32) pg MCHC 29 L (32-34) % RDW 19.6 H (13.2-15.2) % Seg Neuts % (Manual) 71.0 H (40.0-70.0) % Lymphocytes % (Manual) 11.0 L (13.4-35.0) % Eosinophils % (Manual) 16.0 H (0.0-4.3) % Lymphocytes # (Manual) 0.6 L (1.2-5.4) K/mm3 Eosinophils # (Manual) 0.9 H (0.0-0.4) K/mm3 Potassium 3.4 L (3.6-5.0) mmol/L Calcium 8.2 L (8.4-10.2) mg/dL
[2020-09-01] MEDS ORDERED: PANTOPRAZOLE 40 MG TAB PO SCH (17:00)
[2020-09-03 21:10] LABS: HIV-1 RNA QN PCR 5.83 Log cps/mL
== END 2020-09-01 16:06 | disposition home or self-care (01) | DRG 975 ==
LOC: ED 23:23 → 3A 08-31 02:28
PROVIDERS: ADMIT Internal Medicine Geriatric Medicine; ATTEND Internal Medicine
PROC: 0DJ08ZZ Inspection of Upper Intestinal Tract, Via Natural or Artificial Opening Endoscopic (ICD-10-PCS; principal; 2020-09-01)
DX: J18.9 Pneumonia, unspecified organism (principal); K92.1 Melena; B20 Human immunodeficiency virus [HIV] disease; Z20.822 Contact with and (suspected) exposure to COVID-19; Z88.0 Allergy status to penicillin; D64.9 Anemia, unspecified; K44.9 Diaphragmatic hernia without obstruction or gangrene; Z91.19 Patient's noncompliance with other medical treatment and regimen; R79.89 Other specified abnormal findings of blood chemistry
CPT/HCPCS: 36415; 71046; 74177; 80048; 80053; 81001; 82024; 82140; 82271; 82728; 82947; 83615; 83690; 84145; 85007; 85014; 85018; 85025; 85379; 85610; 85730; 86140; 87040; 87116; 87536; 87641; 96365; 96375; G0378; A6250; C9113; J0456; J0696; J1200; J2704; J2765; J3010; J3480; J7030; Q9967; U0003

== ENCOUNTER 2021-01-14 19:44 | Emergency (ER) | payer OTHER ==
[2021-01-14 23:43] LABS: Basophils # (Auto) 0.1 K/mm3 (0.0-0.1); Eosinophils # (Auto) 0.5 K/mm3 (0.0-0.4); Eosinophils % (Auto) 8.2 % (0.0-4.3); Hematocrit 32.7 % (35.5-45.6); Hemoglobin 10.1 gm/dl (11.8-15.2); Lymphocytes # (Auto) 2.3 K/mm3 (1.2-5.4); Lymphocytes % (Auto) 37.3 % (13.4-35.0); Mean Corpuscular HGB Conc 31 % (32-34); Mean Corpuscular Volume 74 fl (84-94); Monocytes # (Auto) 0.7 K/mm3 (0.0-0.8); Platelet Count 262 K/mm3 (140-440); Red Blood Count 4.44 M/mm3 (3.65-5.03)
[2021-01-14 23:48] LABS: BUN/Creatinine Ratio 11; Blood Urea Nitrogen 10 mg/dL (9-20); Hemolysis Index 8
[2021-01-14 23:55] LABS: Red Cell Distribution Width 21.7 % (13.2-15.2)
[2021-01-15] MEDS ORDERED: ACETAMINOPHEN 325 MG TAB PO ONE (04:04)
[2021-01-15 07:38] VITALS: BP 128/83
--- NOTE | 2021-01-15 08:09 | Emergency Department Report ---
Blank Doc - Documentation Documentation: This is a 46-year-old male that presents with right leg pain, swelling, redness and stated had some purulent drainage. 1- This is a initial triage assessment/medical screening only. Full assessment and work-up will be completed once the patient is in [facility] hospital gown, ED b ed and in a private room setting. This initial assessment/diagnostic orders/clinical plan/ treatment(s) is/are subject to change based on pt's health status, clinical progression and re-assessment by fellow clinical providers in the ED. Further treatment and workup at subsequent clinical providers discretion. Patient/guardians urged not to elope from ED as their condition may be serious if not clinically assessed and managed. 2-labs 3-DVT study with Doppler ultrasound 4-patient most likely needs a rundown CT with contrast of right leg
--- NOTE | 2021-01-15 10:11 | Vascular Lab Report ---
Right lower extremity Doppler venous ultrasound INDICATION: Pain FINDINGS: There is chronic DVT within the right popliteal vein. Recanalized flow is identified. The r ight common femoral vein, superficial femoral vein and posterior tibial veins appear normal. IMPRESSION: No acute DVT is seen. Chronic DVT in the right popliteal vein Signer Name: Raciel Farias MD Signed: 01/15/2021 10:06 AM Workstation Name: [id number]
--- NOTE | 2021-01-15 10:22 | Emergency Department Report ---
ED General Adult HPI - General Chief complaint: Extremity Injury, Lower Stated complaint: SORE RT ANKLE Time Seen by Provider: 01/15/21 07:46 Source: patient Mode of arrival: Ambulatory Limitations: No Limitations - History of Present Illness Initial comments: Chief complaint: Leg swelling for 2 months HPI: This is a 46-year-old male with history of DVT, HIV/AIDS, hiatal hernia, bipolar disorder, heart failure anemia who presents with bilateral leg swelling for 2 months. He has club deformity of both feet. No injury. No new shortness of breath. -: Gradual, month(s) (2 months) Severity scale (0 -10): 10 Improves with: none Worsens with: none Associated Symptoms: denies other symptoms Treatments Prior to Arrival: none - Related Data Allergies Allergy/AdvReac Type Severity Reaction Status Date / Time Penicillins Allergy Itching Verified 08/31/20 07:29 ED Review of Systems ROS: Stated complaint: SORE RT ANKLE Other details as noted in HPI Comment: All other systems reviewed and negative Constitutional: denies: fever Respiratory: denies: cough, shortness of breath Cardiovascular: denies: chest pain Gastrointestinal: denies: abdominal pain Skin: rash, lesions, change in color ED Past Medical Hx - Past Medical History Previous Medical History?: Yes Hx Heart Attack/AMI: Yes Hx Congestive Heart Failure: No Hx Diabetes: No Hx Asthma: No Hx COPD: No Hx HIV: Yes - Family History Family history: hypertension, vascular disease - Social History Smoking Status: Current Every Day Smoker ED Physical Exam - General Limitations: No Limitations General appearance: alert, in no apparent distress, other (Ambulatory without difficulty, appears nontoxic appears comfortable) - Head Head exam: Present: atraumatic, normocephalic - Eye Eye exam: Present: normal appearance - ENT ENT exam: Present: mucous membranes moist - Neck Neck exam: Present: normal inspection, full ROM - Respiratory Respiratory exam: Present: normal lung sounds bilaterally. Absent: respiratory distress, wheezes, rales, rhonchi - Cardiovascular Cardiovascular Exam: Present: regular rate, normal rhythm, normal heart sounds. Absent: systolic murmur, diastolic murmur, rubs, gallop - GI/Abdominal GI/Abdominal exam: Present: soft, normal bowel sounds. Absent: distended, tenderness, guarding, rebound - Extremities Exam Extremities exam: Present: pedal edema, other (club Deformity both feet, mild edema both lower extremities) - Neurological Exam Neurological exam: Present: alert, oriented X3 - Psychiatric Psychiatric exam: Present: normal affect, normal mood - Skin Skin exam: Present: rash (Hypo-, hyperpigmented patches both legs) ED Course Vital Signs 01/14/21 01/15/21 01/15/21 22:00 07:37 07:39 Temperature 99.4 F 98.2 F 98.2 F Pulse Rate 98 H 89 89 Respiratory 20 20 20 Rate Blood Pressure 136/79 128/83 128/83 O2 Sat by Pulse 98 99 Oximetry ED Medical Decision Making - Lab Data Result diagrams: 01/14/21 22:50 01/14/21 22:50 Laboratory Results - last 24 hr 01/14/21 01/14/21 22:50 22:50 WBC 6.1 RBC 4.44 Hgb 10.1 L Hct 32.7 L MCV 74 L MCH 23 L MCHC 31 L RDW 21.7 H Plt Count 262 Lymph % (Auto) 37.3 H Rankin % (Auto) 12.0 H Eos % (Auto) 8.2 H Baso % (Auto) 1.0 Lymph # (Auto) 2.3 Rankin # (Auto) 0.7 Eos # (Auto) 0.5 H Baso # (Auto) 0.1 Seg Neutrophils % 41.5 Seg Neutrophils # 2.5 Sodium 139 Potassium 3.7 Chloride 99.3 Carbon Dioxide 29 Anion Gap 14 BUN 10 Creatinine 0.9 Estimated GFR > 60 BUN/Creatinine Ratio 11 Glucose 78 Calcium 9.0 - Radiology Data Radiology results: report reviewed atient Name: DEBORAH COX Gender: Male Date of : 1975 Referring Provider: KESHAWN KRISHNAN Organization: [facility] Accession Number: [id number] Requested Date: January 15, 2021 07:47 Report Status: Final Requested Procedure: 1 Procedure Description: VL venous duplex LE RT Modality: VL Findings Reporting MD: Raciel Farias Dictation Time: January 15, 2021 09:06 Director [employer]: 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 Recanalized flow is identified. The right common femoral vein, superficial femoral vein and posterior tibial veins appear normal. IMPRESSION: No acute DVT is seen. 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 CBC revealed mild anemia, chemistry Patient has known DVT right lower extremity confirmed byvDoppler ultrasound. Critical care attestation.: If time is entered above; I have spent that time in minutes in the direct care of this critically ill patient, excluding procedure time. ED Disposition Clinical Impression: HIV (human immunodeficiency virus infection), Anemia, Hx of deep venous thr ombosis Disposition: 01 HOME / SELF CARE / HOMELESS Is pt being admited?: No Does the pt Need Aspirin: No Condition: Stable Referrals: JOSÉ PRABHAKAR MD [Staff Physician] - 3-5 Days EMERY FLORES MD [Staff Physician] - 3-5 Days SHAHBAZ COLINDRES MD [Staff Physician] - 3-5 Days
== END 2021-01-15 10:39 | disposition home or self-care (01) ==
LOC: ED 19:44
DX: D64.9 Anemia, unspecified (principal); I82.401 Acute embolism and thrombosis of unspecified deep veins of right lower extremity; Z21 Asymptomatic human immunodeficiency virus [HIV] infection status; I21.9 Acute myocardial infarction, unspecified; F17.200 Nicotine dependence, unspecified, uncomplicated; Z88.0 Allergy status to penicillin
CPT/HCPCS: 36415; 80048; 85025; 99284

== ENCOUNTER 2021-06-20 12:39 | Emergency (ER) | payer SELFPAY ==
[2021-06-20 12:46] VITALS: BP 123/80
[2021-06-20] MEDS ORDERED: BENZONATATE 100 MG CAP PO ONE (12:46)
--- NOTE | 2021-06-20 12:49 | Emergency Department Report ---
- General Chief Complaint: Upper Respiratory Infection Stated Complaint: COUGH X 3 DAYS Time Seen by Provider: 06/20/21 12:46 Source: EMS Mode of arrival: Stretcher Limitations: No Limitations - History of Present Illness Initial Comments: Patient presents by ambulance secondary to cough and difficulty breathing. He actually got his booster for COVID few days ago. He was coughing prior to that. He reports having a productive cough with yellowish phlegm. He has not had muscle aches and body aches but has had subjective fevers and chills. He has had some coughing to the point of vomiting. He does report nasal congestion. He works as a cloud security architect. He has had no known close contacts with influenza and he was not vaccinated for the flu. - Related Data Previous Rx's Medication Instructions Recorded Last Taken Type Albuterol Sulfate [Proventil Hfa] 6.7 gm IH 4XD #1 inh 06/20/21 Unknown Rx Benzonatate [Tessalon Perles] 100 mg PO Q8HR #21 cap 06/20/21 Unknown Rx Allergies Allergy/AdvReac Type Severity Reaction Status Date / Time Penicillins Allergy Hives Verified 06/20/21 12:46 ED Review of Systems ROS: Stated complaint: COUGH X 3 DAYS Other details as noted in HPI Comment: All other systems reviewed and negative Constitutional: see HPI Eyes: denies: eye pain ENT: denies: throat pain Respiratory: see HPI Cardiovascular: denies: chest pain Endocrine: denies: unexplained weight loss Gastrointestinal: denies: abdominal pain Musculoskeletal: denies: back pain Skin: denies: rash Neurological: denies: headache Hematological/Lymphatic: denies: easy bruising ED Past Medical Hx - Past Medical History Hx Congestive Heart Failure: Yes - Family History Family history: no significant - Medications Home Medications: Home Medications Medication Instructions Recorded Confirmed Last Taken Type Albuterol Sulfate [Proventil Hfa] 6.7 gm IH 4XD #1 inh 06/20/21 Unknown Rx Benzonatate [Tessalon Perles] 100 mg PO Q8HR #21 cap 06/20/21 Unknown Rx ED Physical Exam - General Limitations: No Limitations, Other (Pulse ox noted and normal) General appearance: alert, in no apparent distress - Head Head exam: Present: atraumatic, normocephalic - Eye Eye exam: Present: normal appearance, EOMI. Absent: scleral icterus - ENT ENT exam: Present: normal orophraynx, normal external ear exam - Neck Neck exam: Present: normal inspection. Absent: meningismus - Respiratory Respiratory exam: Present: normal lung sounds bilaterally. Absent: respiratory distress - Cardiovascular Cardiovascular Exam: Present: regular rate, normal rhythm. Absent: JVD - GI/Abdominal GI/Abdominal exam: Present: soft. Absent: distended, tenderness - Extremities Exam Extremities exam: Present: normal capillary refill. Absent: pedal edema, calf tenderness - Back Exam Back exam: Absent: CVA tenderness (R), CVA tenderness (L) - Neurological Exam Neurological exam: Present: alert, oriented X3, CN II-XII intact. Absent: motor sensory deficit - Psychiatric Psychiatric exam: Present: normal affect, normal mood - Skin Skin exam: Present: warm, dry ED Course Vital Signs 06/20/21 12:45 Temperature 97.9 F Pulse Rate 66 Respiratory 16 Rate Blood Pressure 123/80 [Right] O2 Sat by Pulse 100 Oximetry - Reevaluation(s) Reevaluation #1: 06/20/21 12:48 EMS was met upon arrival. X-ray was ordered. Old records noted. Reevaluation #2: 06/20/21 14:24 Patient was discharged ED Medical Decision Making - Radiology Data Radiology results: report reviewed - Medical Decision Making Patient presented with upper respiratory symptoms. There is no radiographic evidence of pneumonia or pneumothorax. He has been vaccinated against COVID. He is not hypoxic. This could certainly be the flu or some other viral infection. I do believe it is viral. There is no evidence of a secondary bacterial component. He was treated symptomatically and referred for outpatient evaluation. Critical Care Time: No Critical care attestation.: If time is entered above; I have spent that time in minutes in the direct care of this critically ill patient, excluding procedure time. ED Disposition Clinical Impression: Viral URI Disposition: HOME / SELF CARE / HOMELESS Is pt being admited?: No Condition: Stable Instructions: Viral Respiratory Infection, [id number] Additional Instructions: Drink plenty water. Use the inhaler. Return for problems. Follow-up with your regular doctor or the referral doctor for recheck and further evaluation. Use a mask and isolate. Prescriptions: Albuterol Sulfate [Proventil Hfa] 6.7 gm IH 4XD #1 inh Benzonatate [Tessalon Perles] 100 mg PO Q8HR #21 cap Referrals: PRIMARY CARE, [Referring] - 3-5 Days UDAY GALLEGOS MD [Staff Physician] - 3-5 Days
--- NOTE | 2021-06-20 13:32 | XRay Report ---
CHEST 2 VIEWS INDICATION / CLINICAL INFORMATION: cough. COMPARISON: None available. FINDINGS: SUPPORT DEVICES: None. HEART / MEDIASTINUM: No significant abnormality. LUNGS / PLEURA: No significant pulmonary or pleural abnormality. No pneumothorax. ADDITIONAL FINDINGS: No significant additional findings. IMPRESSION: 1. No acute findings. Signer Name: Manfred Stewart MD Signed: 06/20/2021 1:28 PM Workstation Name: [id number]
== END 2021-06-20 15:12 | disposition home or self-care (01) ==
LOC: EDUNIT# → ED 12:39
DX: J06.9 Acute upper respiratory infection, unspecified (principal); I50.9 Heart failure, unspecified
CPT/HCPCS: 71046; 99283